=== PATIENT | male | born 1995 | race Caucasian/White ===

== ENCOUNTER 2017-01-27 11:01 | Emergency (ER) | payer BC, OTHER ==
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
--- NOTE | 2017-01-27 12:54 | CT ---
INDICATION: Pain TECHNIQUE: Multiple, contiguous 2.5 mm axial cuts of the brain are obtained from the posterior fossa to the cranial vault. Sagittal and coronal reformatted images provided. No IV contrast is administered. COMPARISON: None FINDINGS: No intracranial hemorrhage, abnormal intra- or extra-axial collections or parenchymal lesions are seen. The shape and configuration of the cortical sulci, basal cisterns and ventricles are within normal limits. The perez-white differentiation is preserved. No evidence of mass effect, midline shift, or edema. The osseous structures are unremarkable. The visualized portions of the paranasal sinuses are clear. IMPRESSION: Normal non-contrast CT scan of the head. CTDI: 57.4 mGy DLP: 1042.5 mGycm INDICATION: Pain TECHNIQUE: Multiple, contiguous 2.5 mm axial cuts of the cervical spine are obtained from the skull base to the thoracic inlet. Sagittal and coronal reformatted images provided. No IV contrast is administered. COMPARISON: None FINDINGS: No fracture or subluxations are noted. The vertebral body heights, disc spaces and alignment are preserved. No prevertebral soft tissue swelling. IMPRESSION: Normal CT scan of the cervical spine. CTDI: 57.4 mGy DLP: 1042.5 mGycm
[2017-01-27 13:16] VITALS: BP 108/54; PULSE 76; RESP 18; TEMP 98
== END 2017-01-27 13:15 | disposition home or self-care (01) ==
LOC: EC 11:01
DX: R51 Headache (principal); M54.2 Cervicalgia; V89.2XXA Person injured in unspecified motor-vehicle accident, traffic, initial encounter
CPT/HCPCS: 70450; 72125; 99284

== ENCOUNTER 2017-02-19 05:56 | Emergency (ER) | payer BC ==
[2017-02-19 06:12] VITALS: RESP 18
--- NOTE | 2017-02-19 08:02 | ED ---
Fever HPI - General Source: patient Mode of arrival: ambulatory Limitations: no limitations - History of Present Illness MD Complaint: fever, other (Body aches) Onset/Timin -: days(s) Context: sick contacts Associated Symptoms: myalgias, sore throat, cough <Pietro Dos Santos - Last Filed: 02/19/17 08:02> <Jovan Auguste - Last Filed: 02/19/17 09:12> - General Chief Complaint: Fever Stated Complaint: sore, ent, dizzy Time Seen by Provider: 02/19/17 06:31 - History of Present Illness Initial Comments: This patient is a 21-year-old man who presents with going on 3 days of fever and body aches, coming in with little bit of cough and sore throat. Patient states that his symptoms started Saturday evening, worse on Saturday then he had some improvement over Saturday and Saturday worsening over the course of the evening. As he was not improving he decided to be seen this morning. The patient denies chest pain, shortness of breath, productive cough. He is not having any nausea vomiting or diarrhea. No change in urination. No rash. No neck stiffness or pain. (Pietro Dos Santos) - Related Data Previous Rx's Medication Instructions Recorded Azithromycin [Zithromax Tri-Kj] 500 mg PO DAILY #3 tab 02/19/17 Allergies Allergy/AdvReac Type Severity Reaction Status Date / Time No Known Allergies Allergy Verified 02/19/17 07:26 Review of Systems ROS Other: All systems not noted in ROS Statement are negative. Constitutional: Reports: fever, chills, weakness ENT: Reports: throat pain Respiratory: Reports: cough Cardiovascular: Denies: chest pain Gastrointestinal: Denies: abdominal pain, vomiting, diarrhea Genitourinary: Denies: dysuria, hematuria Musculoskeletal: Reports: myalgia. Denies: back pain Skin: Denies: rash Neurological: Denies: headache, weakness, numbness <Pietro Dos Santos - Last Filed: 02/19/17 08:02> ROS Other: All systems not noted in ROS Statement are negative. <Jovan Auguste - Last Filed: 02/19/17 09:12> ROS Statement: Those systems with pertinent positive or pertinent negative responses have been documented in the HPI. Past Medical History Past Medical History: No Reported History History of Any Multi-Drug Resistant Organisms: None Reported Past Surgical History: Adenoidectomy Past Psychological History: No Psychological Hx Reported Smoking Status: Never smoker Past Alcohol Use History: None Reported Past Drug Use History: None Reported <Pietro Dos Santos - Last Filed: 02/19/17 08:02> General Exam Limitations: no limitations General appearance: alert, in no apparent distress Head exam: Present: atraumatic, normocephalic Eye exam: Present: normal appearance. Absent: scleral icterus, conjunctival injection ENT exam: Present: mucous membranes moist, TM's normal bilaterally, normal external ear exam, other (There is injection of pharynx) Neck exam: Present: normal inspection, full ROM, lymphadenopathy. Absent: meningismus Respiratory exam: Present: normal lung sounds bilaterally. Absent: respiratory distress, wheezes, rales, rhonchi, stridor Cardiovascular Exam: Present: regular rate, normal rhythm, normal heart sounds GI/Abdominal exam: Present: soft. Absent: distended, tenderness, guarding, rebound, mass Back exam: Absent: CVA tenderness (R), CVA tenderness (L) Neurological exam: Present: alert Skin exam: Present: warm, dry, intact, normal color. Absent: rash <Pietro Dos Santos - Last Filed: 02/19/17 08:02> Medical Decision Making <Pietro Dos Santos - Last Filed: 02/19/17 08:02> <Jovan Auguste - Last Filed: 02/19/17 09:12> - Medical Decision Making Chest x-ray shows no acute normalities. I went back in and reinterviewed the patient he told me that he had been coughing quite a bit and coughing up quite a bit of green sputum. (Jovan Auguste) - Lab Data Lab Results 02/19/17 02/19/17 02/19/17 Range/Units 06:10 07:48 07:48 Urine Color Light Yellow Urine Appearance Clear (Clear) Urine pH 6.0 (5.0-8.0) Ur Specific [place] 1.005 (1.001-1.035) Urine Protein Negative (Negative) Urine Glucose (UA) Negative (Negative) Urine Ketones Negative (Negative) Urine Blood Negative (Negative) Urine Nitrite Negative (Negative) Urine Bilirubin Negative (Negative) Urine Urobilinogen <2.0 (<2.0) mg/dL Ur Leukocyte Esterase Negative (Negative) Influenza Type A RNA Not Detected (Not Detectd) Influenza Type B (PCR) Not Detected (Not Detectd) Group A Strep Rapid Negative (Negative) Disposition <Pietro Dos Santos - Last Filed: 02/19/17 08:02> Time of Disposition: 09:10 <Jovan Auguste - Last Filed: 02/19/17 09:12> Clinical Impression: Bronchitis Disposition: HOME SELF-CARE Condition: Good Instructions: Acute Bronchitis (ED) Prescriptions: Azithromycin [Zithromax Tri-Kj] 500 mg PO DAILY #3 tab Referrals: Hossein Dunbar DO [Primary Care Provider] - 1-2 days
[2017-02-19 08:09] LABS: Appearance,Urine Clear (Clear); Bilirubin,Urine Negative (Negative); Glucose,Urine (UA) Negative (Negative); Ketones,Urine Negative (Negative); Leukocyte Esterase,Urine Negative (Negative); Nitrite,Urine Negative (Negative); Protein,Urine Negative (Negative); Specific Gravity,Urine 1.005 (1.001-1.035); UA Billing (MACRO vs. MICRO) CHEM; Urobilinogen,Urine <2.0 mg/dL (<2.0)
--- NOTE | 2017-02-19 08:59 | XR ---
EXAMINATION TYPE: XR chest 2V DATE OF EXAM: 02/19/2017 8:51 AM COMPARISON: None HISTORY: 21-year-old male with fever TECHNIQUE: PA and lateral views FINDINGS: The cardiomediastinal silhouette, aorta, and pulmonary vasculature are within normal limits. Lungs an d pleural spaces are clear. IMPRESSION: No acute cardiopulmonary process.
[2017-02-19 09:10] VITALS: BP 106/74; PULSE 64; TEMP 98
== END 2017-02-19 10:32 | disposition home or self-care (01) ==
LOC: EC 05:56
DX: J40 Bronchitis, not specified as acute or chronic (principal); M79.1 Myalgia
CPT/HCPCS: 71020; 81003; 87081; 87430; 87502; 99283

== ENCOUNTER 2018-06-16 09:49 | Emergency (ER) | payer BC ==
[2018-06-16 10:09] VITALS: BP 131/79; PULSE 66; RESP 16; TEMP 98
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
== END 2018-06-16 10:36 | disposition home or self-care (01) ==
LOC: EC 09:49
DX: S06.0X0A Concussion without loss of consciousness, initial encounter (principal); M26.602 Left temporomandibular joint disorder, unspecified; W01.10XA Fall on same level from slipping, tripping and stumbling with subsequent striking against unspecified object, initial encounter; Y92.009 Unspecified place in unspecified non-institutional (private) residence as the place of occurrence of the external cause
CPT/HCPCS: 99283

== ENCOUNTER → 2018-07-10 | Outpatient (CLI) | payer BC ==
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
== END | disposition home or self-care (01) ==
LOC: RADXRYALE 16:43
PROVIDERS: ATTEND Physician Assistant Medical
DX: S99.911A Unspecified injury of right ankle, initial encounter (principal)

== ENCOUNTER → 2018-08-25 | Outpatient (CLI) | payer BC ==
--- NOTE | 2018-08-25 13:55 | XR ---
Cervical spine HISTORY: Pain x1 year 5 views of the cervical spine Correlation to CT cervical spine 01/27/2018 Cervical vertebral bodies show preserved height and bone mineralization. Disc spaces are maintained. Alignment is normal. Prevertebral soft tissues are normal. No significant foraminal encroachment. IMPRESSION: Normal cervical spine.
== END | disposition home or self-care (01) ==
LOC: RADXRYALE 11:14
PROVIDERS: ATTEND Family Medicine
DX: M54.2 Cervicalgia (principal)
CPT/HCPCS: 72050

== ENCOUNTER → 2020-02-12 | Outpatient (CLI) | payer BC ==
--- NOTE | 2020-02-13 08:00 | ECHOF ---
Referral Reason:R00.2 Palpitations R07.89 Other chest pain..... MEASUREMENTS -------- HEIGHT: 188.0 cm WEIGHT: 102.1 kg BP: 103/56 RVIDd: 2.8 cm (< 3.3) IVSd: 1.0 cm (0.6 - 1.1) LVIDd: 4.2 cm (3.9 - 5.3) LVPWd: 1.1 cm (0.6 - 1.1) IVSs: 1.3 cm LVIDs: 3.0 cm LVPWs: 1.6 cm LA Diam: 2.8 cm (2.7 - 3.8) LAESV Index (A-L): 19.02 ml/m Ao Diam: 2.9 cm (2.0 - 3.7) AV Cusp: 2.3 cm (1.5 - 2.6) MV EXCURSION: 20.043 mm (> 18.000) MV EF SLOPE: 127 mm/s (70 - 150) EPSS: 0.2 cm MV E Elvin: 0.73 m/s MV DecT: 222 ms MV A Elvin: 0.43 m/s MV E/A Ratio: 1.69 RAP: 5.00 mmHg RVSP: 22.99 mmHg FINDINGS -------- Sinus rhythm. This was a technically excellent study. The left ventricular size is normal. There is borderline concentric left ventricular hypertrophy. Overall left ventricular systolic function is normal with, an EF between 60 - 65 %. The right ventricle is normal in size. Normal LA size by volume 22+/-6 ml/m2. The right atrium is normal in size. Interatrial and interventricular septum intact. The aortic valve is trileaflet and appears structurally normal. The mitral valve is normal. Mild tricuspid regurgitation present. Right ventricular systolic pressure is normal at < 35 mmHg. Trace/mild (physiologic) pulmonic regurgitation. The aortic root size is normal. Normal inferior vena cava with normal inspiratory collapse consistent with estimated right atrial pre ssure of 5 mmHg. There is no pericardial effusion. CONCLUSIONS -------- 1. Sinus rhythm. 2. This was a technically excellent study. 3. The left ventricular size is normal. 4. There is borderline concentric left ventricular hypertrophy. 5. Overall left ventricular systolic function is normal with, an EF between 60 - 65 %. 6. The right ventricle is normal in size. 7. Normal LA size by volume 22+/-6 ml/m2. 8. The right atrium is normal in size. 9. Interatrial and interventricular septum intact. 10. The aortic valve is trileaflet and appears structurally normal. 11. The mitral valve is normal. 12. Mild tricuspid regurgitation present. 13. Right ventricular systolic pressure is normal at < 35 mmHg. 14. Trace/mild (physiologic) pulmonic regurgitation. 15. The aortic root size is normal. 16. Normal inferior vena cava with normal inspiratory collapse consistent with estimated right atrial pressure of 5 mmHg. 17. There is no pericardial effusion. GEOGRAPHIC INFORMATION SYSTEM ANALYST: Ronda Coburn RDCS
--- NOTE | 2020-03-17 08:23 | EM ---
EVENT MONITOR Patient was monitored between the 12 of February and the March. The rhythm strip reviewed revealed a sinus mechanism with episode of sinus tachycardia. There was no evidence of pauses or atrial fibrillation. Symptoms of shortness of breath and chest pain as well as irregular beat and flutter did not correlate with any dysrhythmia. A single PVC was noted. MMROME / CHERELLEN: [id number] / MTDD
== END | disposition home or self-care (01) ==
LOC: RADECHMAIN 11:05
PROVIDERS: ATTEND Family Medicine
DX: I07.1 Rheumatic tricuspid insufficiency (principal); I37.1 Nonrheumatic pulmonary valve insufficiency
CPT/HCPCS: 93270; 93306

== ENCOUNTER → 2021-12-21 | Outpatient (CLI) | payer OTHER ==
--- NOTE | 2021-12-22 08:22 | XR ---
EXAMINATION TYPE: XR chest 2V DATE OF EXAM: 12/21/2021 COMPARISON: Chest x-ray 02/19/2017 HISTORY: Chest pain TECHNIQUE: Frontal and lateral views of the chest are obtained. FINDINGS: There is no focal air space opacity, pleural effusion, or pneumothorax seen. The cardiac silhouette size is within normal limits. The osseous structures are intact. IMPRESSION: No acute cardiopulmonary process.
== END | disposition home or self-care (01) ==
LOC: RADXRYALE 16:22
PROVIDERS: ATTEND Physician Assistant
DX: R07.9 Chest pain, unspecified (principal)
CPT/HCPCS: 71046

== ENCOUNTER 2022-02-03 19:40 | Emergency (ER) | payer OTHER ==
[2022-02-03] MEDS ORDERED: DIPH,PERTUS(ACELL)TETVAC-LF 0.5 ML VIAL IM ONE (19:49)
[2022-02-03 20:01] VITALS: RESP 14; TEMP 98.2
[2022-02-03 20:03] LABS: Glucose,Whole Blood 104 mg/dL (75-99)
--- NOTE | 2022-02-03 20:19 | XR ---
EXAMINATION TYPE: XR pelvis AP view DATE OF EXAM: 02/03/2022 COMPARISON: None HISTORY: Pain TECHNIQUE: FINDINGS: Pelvic ring is intact. Proximal femurs are intact. Acetabula appear normal. Sacroiliac joints are nor mal. IMPRESSION: Normal pelvis. No fracture.
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
[2022-02-03 20:24] LABS: Basophils # (A) 0.1 k/uL (0-0.2); Basophils % (A) 0 %; Eosinophils # (A) 0.2 k/uL (0-0.7); Eosinophils % (A) 2 %; Lymphocytes # (A) 1.1 k/uL (1.0-4.8); Lymphocytes % (A) 8 %; MCH 31.9 pg (25.0-35.0); MCHC 34.2 g/dL (31.0-37.0); MCV 93.3 fL (80.0-100.0); Mean Platelet Volume 6.8; Monocytes # (A) 0.6 k/uL (0-1.0); Monocytes % (A) 5 %; Neutrophils # (A) 11.4 k/uL (1.3-7.7); Neutrophils % (A) 84 %; Platelet Count 215 k/uL (150-450); RBC 4.72 m/uL (4.30-5.90); RDW 11.7 % (11.5-15.5); WBC 13.5 k/uL (3.8-10.6)
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
[2022-02-03 20:32] LABS: Prothrombin Time 10.8 sec (9.0-12.0)
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
[2022-02-03 20:37] LABS: ALT 31 U/L (4-49); AST 30 U/L (17-59); African American GFR (CKD) >90 (>60 ml/min/1.73 sqM); Albumin 4.7 g/dL (3.5-5.0); Alcohol <10 mg/dL; Alkaline Phosphatase 44 U/L (38-126); Anion Gap 9 mmol/L; Blood Urea Nitrogen 19 mg/dL (9-20); Calcium 9.2 mg/dL (8.4-10.2); Carbon Dioxide 25 mmol/L (22-30); Chloride 102 mmol/L (98-107); Glucose 113 mg/dL (74-99); Non-African American GFR(CKD) 85 (>60 ml/min/1.73 sqM); Potassium 3.8 mmol/L (3.5-5.1); Sodium 136 mmol/L (137-145); Total Protein 7.6 g/dL (6.3-8.2)
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
--- NOTE | 2022-02-03 20:59 | XR ---
EXAMINATION TYPE: XR tibia fibula RT DATE OF EXAM: 02/03/2022 COMPARISON: NONE HISTORY: Leg pain TECHNIQUE: 4 views FINDINGS: IMPRESSION: Tibia and fibula appear intact. Ankle mortise is anatomic. I see no fracture nor dislocat ion. Knee joint is intact. Ankle joint is intact. IMPRESSION: Negative right tibia and fibula exam.
--- NOTE | 2022-02-03 21:28 | XR ---
EXAMINATION TYPE: XR elbow complete LT DATE OF EXAM: 02/03/2022 COMPARISON: NONE HISTORY: Elbow pain TECHNIQUE: 4 views FINDINGS: I see no fracture nor dislocation. Joint spaces are normal. There is no sign of elbow joint effusion. IMPRESSION: Negative left elbow exam.
[2022-02-03] MEDS ORDERED: KETOROLAC 15 MG/ML 1 ML VIAL IVP STA (21:30)
[2022-02-03] MEDS ORDERED: LIDOCAINE 1% INJ 10MG/ML (20 ML MDV) SQ ONE (21:45)
[2022-02-03 22:43] VITALS: BP 127/78; PULSE 85
== END 2022-02-03 22:17 | disposition home or self-care (01) ==
LOC: EC 19:40
DX: S81.811A Laceration without foreign body, right lower leg, initial encounter (principal); S50.02XA Contusion of left elbow, initial encounter; S22.050A Wedge compression fracture of T5-T6 vertebra, initial encounter for closed fracture; Z23 Encounter for immunization; V86.56XA Driver of dirt bike or motor/cross bike injured in nontraffic accident, initial encounter; Y92.410 Unspecified street and highway as the place of occurrence of the external cause
CPT/HCPCS: 99284; 96374; 90471; 12001; 36415; 93005; 86900; 86901; 80053; 84484; 85025; 85610; 85730; 86850; 80320; 72170; 73080; 73590; 71045; 72125; 70450; 71260; 74177; 90715; J2001; J1885; Q9967

== ENCOUNTER 2022-05-16 11:25 | Emergency (ER) | payer OTHER ==
[2022-05-16 11:30] VITALS: BP 133/68; PULSE 67; RESP 16; TEMP 98.1
--- NOTE | 2022-05-16 11:53 | ED ---
Animal Bite HPI - General Chief Complaint: Animal Bite Stated Complaint: squirrel bite Time Seen by Provider: 05/16/22 11:32 Source: patient, RN notes reviewed Mode of arrival: ambulatory Limitations: no limitations - History of Present Illness Initial Comments: This is a 27-year-old male who presents to the emergency department for a squirrel bite to the right pointer finger. This occurred one week ago, he was trying to remove a squirrel from his dog's mouth when he acquired the bite. He notes that for the last 2 days he has been more tired than usual, but states that he believes this is most likely due to his allergies. Denies currently being in any pain. Inquired about needing a rabies vaccine. Denies any fevers, chills, sore throat, cough, dyspnea, chest pain, palpitations, abdominal pain, nausea, vomiting, diarrhea, back pain, or headaches. MD Complaint: animal bite Onset/Timin -: week(s) Right: Hand (Pointer finger) Animal: squirrel Description: wild animal Mechanism: bite - Related Data Previous Rx's Medication Instructions Recorded HYDROcodone/APAP 5-325MG [[place] 1 tab PO Q6HR PRN #12 tab 02/03/22 5-325] Ibuprofen [Motrin] 600 mg PO Q8HR PRN #24 tab 02/03/22 Amoxic-Pot Clav 875-125Mg 1 tab PO Q12HR 7 Days #14 tab 05/16/22 [Augmentin 875-125] Allergies Allergy/AdvReac Type Severity Reaction Status Date / Time No Known Allergies Allergy Verified 05/16/22 11:30 Review of Systems ROS Statement: Those systems with pertinent positive or pertinent negative responses have been documented in the HPI. ROS Other: All systems not noted in ROS Statement are negative. Past Medical History Past Medical History: No Reported History Additional Past Medical History / Comment(s): tmj chronic neuritis of back History of Any Multi-Drug Resistant Organisms: None Reported Past Surgical History: Adenoidectomy Past Psychological History: No Psychological Hx Reported Smoking Status: Never smoker Past Alcohol Use History: None Reported Past Drug Use History: None Reported General Exam Limitations: no limitations General appearance: alert, in no apparent distress Head exam: Present: atraumatic, normocephalic, normal inspection Respiratory exam: Present: normal lung sounds bilaterally. Absent: respiratory distress, wheezes, rales, rhonchi, stridor Cardiovascular Exam: Present: regular rate, normal rhythm, normal heart sounds. Absent: systolic murmur, diastolic murmur, rubs, gallop, clicks Neurological exam: Present: alert, oriented X3, CN II-XII intact Psychiatric exam: Present: normal affect, normal mood Skin exam: Present: other (1 cm laceration to the finger pad of the right pointer finger. This is almost completely healed. There is no tenderness, swelling, increased heat, or surrounding erythema.) Course Vital Signs 05/16/22 11:28 Temperature 98.1 F Pulse Rate 67 Respiratory 16 Rate Blood Pressure 133/68 O2 Sat by Pulse 96 Oximetry Medical Decision Making - Medical Decision Making This is a 27-year-old male who presents to the emergency department for a squirrel bite. Case discussed with Dr. Vaca and we reviewed the CDC indications. In the [place] rabies prophylaxis is not indicated for squirrel bites. Patient placed on 7 day course of Augmentin. Advised that if he does begin to develop any symptoms including but not limited to, flu-like symptoms, pain or itching at the site, or confusion, he should return to the emergency department for rabies vaccination. Return precautions reviewed in depth, the patient is instructed to return to the emergency department with any new, worsening, or concerning symptoms. Patient verbalized understanding. This case was discussed in detail with the attending ED physician. Presentation, findings, and treatment plan discussed in detail as well. Disposition Clinical Impression: Bitten by squirrel Disposition: HOME SELF-CARE Instructions (If sedation given, give patient instructions): Animal Bite (ED) Additional Instructions: Return to the emergency department with any new, worsening, or concerning symptoms. Take the Augmentin as prescribed for 7 days. Follow up with your primary care provider in 1-2 days. Prescriptions: Amoxic-Pot Clav 875-125Mg [Augmentin 875-125] 1 tab PO Q12HR 7 Days #14 tab Is patient prescribed a controlled substance at d/c from ED?: No Referrals: Hossein Dunbar DO [Primary Care Provider] - 1-2 days
== END 2022-05-16 12:07 | disposition home or self-care (01) ==
LOC: EC 11:25
DX: S61.210A Laceration without foreign body of right index finger without damage to nail, initial encounter (principal); W53.21XA Bitten by squirrel, initial encounter
CPT/HCPCS: 99283